=== PATIENT | female | born 1975 | race Caucasian/White ===

== ENCOUNTER 2017-12-02 21:46 | Emergency (ER) | payer OTHER, MEDICAID ==
[~2017-12-02] VITALS: Ht 160 cm; Wt 59.1 kg
[2017-12-02] MEDS ORDERED: ONDANSETRON HCL 4 MG/2 ML VIAL IVP ONE (22:15)
[2017-12-02] MEDS ORDERED: SODIUM CHLORIDE 0.9% 1,000 ML IV ONE ×2 (22:15)
[2017-12-02] MEDS ORDERED: MORPHINE SULFATE 4 MG/ML SYRINGE IVP ONE (22:15)
[2017-12-02 22:22] LABS: BASOPHILS % (AUTO) 0.6 % (0.0-2.0); EOSINOPHILS % (AUTO) 0.9 % (1.0-6.0); HEMATOCRIT 41.1 % (36-46); HEMOGLOBIN 14.1 g/dL (12.0-16.0); LYMPHOCYTES # (AUTO) 2.9 K/uL (1.0-4.8); LYMPHOCYTES % (AUTO) 31.4 % (22.0-44.0); MEAN CORPUSCULAR HEMOGLOBIN 30.4 pg (26.0-34.0); MEAN CORPUSCULAR HGB CONC 34.3 G/dL (31.0-37.0); MEAN CORPUSCULAR VOLUME 89 fL (80-100); MONOCYTES # (AUTO) 0.5 K/uL (0.1-1.0); MONOCYTES % (AUTO) 5.6 % (2.0-9.0); NEUTROPHILS # (AUTO) 5.7 K/uL (1.8-7.7); NEUTROPHILS % (AUTO) 61.5 % (40.0-70.0); PLATELET COUNT (AUTO) 244 K/uL (150-450); RED BLOOD CELL COUNT(AUTO) 4.63 MIL/uL (4.00-5.20); RED CELL DISTRIBUTION WIDTH 12.4 % (11.5-14.5)
[2017-12-02 22:34] LABS: PROTHROMBIN TIME 10.1 SEC (9.4-11.6)
[2017-12-02 22:36] LABS: ANION GAP 15 mmol/L (8-16); CALCIUM, TOTAL 9.9 mg/dL (8.8-10.5); CARBON DIOXIDE 21 mmol/L (22-29); CHLORIDE 105 mmol/L (98-107); GLOMERULAR FILTR. RATE CALC 54 mL/min (>60); GLUCOSE,RANDOM 127 mg/dL (70-110); SODIUM SERUM 141 mmol/L (136-145); UREA NITROGEN, BLOOD 20 mg/dL (7-18)
[2017-12-02] MEDS ORDERED: POTASSIUM CHLORIDE 20 MEQ ER TABLET PO ONE (23:00)
[2017-12-02] MEDS ORDERED: PB/HYOSCY/ATR/SCOP/LIDO/MAALOX 55 ML BOTTLE PO ONE (23:00)
[2017-12-02 23:02] LABS: ALANINE AMINOTRANSFERASE 29 U/L (12-78); ALBUMIN 4.4 g/dL (3.4-5.0); ALKALINE PHOSPHATASE 95 U/L (46-116); ASPARTATE AMINOTRANSFERASE 55 U/L (15-37); B-TYPE NATRIURETIC PEPTIDE 25 pg/mL (0-100); CREATINE KINASE MB 0.5 ng/mL (0-5); CREATINE KINASE, TOTAL 79 U/L (26-192); TOTAL PROTEIN, SERUM 8.1 g/dL (6.4-8.2)
[2017-12-02] MEDS ORDERED: KETOROLAC TROMETHAMINE 30 MG/ML VIAL IVP ONE (23:30)
[2017-12-03] MEDS ORDERED: MORPHINE SULFATE 4 MG/ML SYRINGE IVP ONE
[2017-12-03 00:59] LABS: LIPASE 193 U/L (73-393)
[2017-12-03 01:07] LABS: APPEARANCE,URINE CLEAR (CLEAR); GLUCOSE, URINE (UA) NEGATIVE (NEGATIVE); KETONES,URINE >=80 mg/dL (NEGATIVE); LEUKOCYTE ESTERASE ,URINE NEGATIVE (NEGATIVE); NITRATE,URINE NEGATIVE (NEGATIVE); OCCULT BLOOD,URINE NEGATIVE (NEGATIVE); PH,URINE 5.5 (5.0-8.0); PROTEIN,URINE NEGATIVE (NEGATIVE)
[2017-12-03 01:10] LABS: BILIRUBIN,URINE PRELIM. POSITIVE (NEGATIVE)
[2017-12-03] MEDS ORDERED: MORPHINE SULFATE 2 MG/ML SYRINGE IVP ONE ×2 (03:00→03:30)
[2017-12-03 03:39] VITALS: BP 104/68
== END 2017-12-03 04:35 | disposition left against medical advice (07) ==
LOC: EMS 21:48
DX: K80.50 Calculus of bile duct without cholangitis or cholecystitis without obstruction (principal)
CPT/HCPCS: 36415; 71045; 76705; 80053; 81003; 82550; 82553; 83690; 83880; 84484; 84703; 85025; 85610; 85730; 93005; 96374; 96375; 96376; 99285; J1885; J2270 ×2; J2405; J7030; Z7610